=== PATIENT | female | born 1955 | race Caucasian/White ===

== ENCOUNTER 2020-05-17 07:25 | Day surgery (SDC) | payer OTHER, BC ==
[2020-05-15 14:09] VITALS: BMI 20.7
[2020-05-17] MEDS ORDERED: LIDOCAINE HCL/PF 2% SDV 5ML VIAL ONE (07:56)
[2020-05-17] MEDS ORDERED: PROPOFOL 20 ML ONE ×2 (07:56)
[2020-05-17 08:08] VITALS: TEMP 98
[2020-05-17 09:42] VITALS: BP 116/61; PULSE 62
== END 2020-05-17 09:35 | disposition home or self-care (01) ==
LOC: FASU-ENDO 07:25
PROVIDERS: ATTEND Internal Medicine Gastroenterology
PROC: 0DBN8ZX Excision of Sigmoid Colon, Via Natural or Artificial Opening Endoscopic, Diagnostic (ICD-10-PCS; principal; 2020-05-17 08:43)
DX: Z12.11 Encounter for screening for malignant neoplasm of colon (principal); K63.5 Polyp of colon
CPT/HCPCS: 88305-TC